=== PATIENT | female | born 2000 | race Two or more races ===

== ENCOUNTER 2024-10-27 08:44 | Emergency (ER) | payer MEDICAID ==
[~2024-10-27] VITALS: Ht 162.6 cm; Wt 65.0 kg
[2024-10-27 08:47] VITALS: TEMP 98.4
[2024-10-27 09:14] LABS: PLATELET COUNT (AUTO) 320 K/uL (150-450); RED BLOOD CELL COUNT(AUTO) 4.06 MIL/uL (4.00-5.20); RED CELL DISTRIBUTION WIDTH 13.3 % (11.5-14.5); WHITE BLOOD COUNT (AUTO) 6.1 K/uL (4.5-11.0)
[2024-10-27 09:21] LABS: CALCIUM, TOTAL 8.7 mg/dL (8.8-10.5); CREATININE 0.64 mg/dL (0.60-1.30); GLOMERULAR FILTR. RATE CALC > 60 mL/min (>60); GLUCOSE,RANDOM 104 mg/dL (70-110); SODIUM SERUM 139 mmol/L (136-145); UREA NITROGEN, BLOOD 6 mg/dL (7-18)
[2024-10-27 09:32] LABS: ASPARTATE AMINOTRANSFERASE 14 U/L (15-37); HCG,QUANTITATIVE 313 mIU/mL (0-6); TOTAL PROTEIN, SERUM 7.5 g/dL (6.4-8.2)
[2024-10-27 10:36] LABS: APPEARANCE,URINE CLEAR (CLEAR); GLUCOSE, URINE (UA) NEGATIVE (NEGATIVE); LEUKOCYTE ESTERASE ,URINE NEGATIVE (NEGATIVE); NITRATE,URINE NEGATIVE (NEGATIVE); OCCULT BLOOD,URINE MODERATE (NEGATIVE); SPECIFIC GRAVITIY, URINE 1.008 (1.003-1.030)
[2024-10-27 11:23] LABS: SQUAMOUS EPITHELIAL CELL,UR Rare /LPF (None Seen)
[2024-10-27 14:15] VITALS: BP 110/64; PULSE 80; RESP 18; O2SAT 100
== END 2024-10-27 14:29 | disposition home or self-care (01) ==
LOC: EMS 08:48
DX: O20.0 Threatened abortion (principal); N93.8 Other specified abnormal uterine and vaginal bleeding; Z3A.01 Less than 8 weeks gestation of pregnancy
CPT/HCPCS: 76801; 80053; 81001; 84702; 85025; 86901; 99284